=== PATIENT | female | born 1985 | race Caucasian/White ===

== ENCOUNTER 2022-08-15 00:36 | Day surgery (SDC) | payer BC, SELFPAY ==
[2022-08-02 14:41] VITALS: BMI 25.1
--- NOTE | 2022-08-02 14:42 | PC.NURSE ---
Report to the Outpatient Waiting Room, entrance under the green pavilion located off [facility], at time _0700_ on date _08/15/22__. Planned Procedure Time: _0900__. Time changes happen often and if your time is changed the preop area will call you the afternoon before. - You and your visitor will be asked to self-screen and do not enter if you have any COVID symptoms. - Only one visitor is requested with a max of two and NO children visitors are allowed at this time. - The patient visitor may be requested to leave or wait in car when not with patient due to distancing restrictions. - A mask is optional within the hospital. Patients may have clear liquids (water, carbonated beverages, clear teas, apple juice) until 3 hours prior to surgery with a maximum of 20 ounces. - No food from midnight until time of surgery - Infants may have breast milk until 4 hours before surgery, infant formula 6 hours prior to surgery. - Children will be allowed to drink immediately following surgery. If applicable, please bring a bottle or sippy cup to assist with drinking. Juice, water, soda, and popsicles are readily available. For infants on formula, please bring formula the day of surgery. Pacifiers are allowed. Take the following medications with a SIP of water the morning of surgery: __if needed zyrtec Medications to discontinue per physician supplement 3 days prior to surgery____ Date to take last dose Please no make-up, nail turkish, hairspray, perfume, deodorant, or body powder the day of surgery. No jewelry (including any body piercings) or valuables the day of surgery, leave them at home. Please take a shower or bath the night before, or the morning of, surgery with an antibacterial soap. Wear comfortable, loose fitting clothing. Children are encouraged to wear pajamas. - Jewelry must be removed prior to entering the operating room. Rings and piercings that are not removed may be cut off. - The hospital will not accept responsibility for valuables. - Please leave all valuables, including medications, at home the day of surgery. If you are going home after surgery, a licensed cdl truck driver must drive you home. - NO public transportation without another adult if you receive anesthesia. - We recommend that an adult stay with you for 24 hours following discharge. - We also recommend that you do not drive, make important decision, drink alcoholic beverages, or take any drugs that were not prescribed by your health care provider for at least 24 hours after your discharge time. For Pediatric surgeries, we recommend two adults accompany the child home. Follow any additional instructions given to you from your surgeon. If you or anyone in your household have experienced Covid symptoms in the past week, please notify your surgeon or the nurse liaison at the phone number below for possible testing. Telephone instructions given to _patient__and asked if any additional questions and then verbalized understanding. Patient advised to call surgeon office or pre surgery nurse liaison [phone] if any additional questions.
--- NOTE | 2022-08-14 14:36 | P.PNAN_ITS ---
Anes - Initial Pre Proc Eval Procedure: Operation Date: 08/15/22 07:30 Proposed Procedures p Diagnostic Laparoscopic Bilateral Salpingectomy, - Vee Tavares DO s Hysteroscopy with Dilation and Curettage, Endometrial Novasure Ablation, - Vee Tavares DO Date/Time: 08/14/22 14:36 Surgeon: Vee Tavares DO Pre Op Diagnosis: Heavy Menstrual Bleeding, Desire Sterilization Patient Data Age: 37 Gender: F Height: 1.75 m Weight: 77.11 kg Allergies Allergy/AdvReac Type Severity Reaction Status Date / Time No Known Allergies Allergy Verified 08/02/22 14:32 Home Medications Medication Instructions Recorded Confirmed Type ascorbic acid (vitamin C) 1 tablet PO DAILY 08/02/22 08/02/22 History calcium carb-vit D3-minerals 600 1 tablet PO DAILY 08/02/22 08/02/22 History mg calcium-400 unit tablet cetirizine 10 mg capsule (Zyrtec) 10 mg PO TID PRN Rash 08/02/22 08/02/22 History vitamin B complex (B 1 tablet PO DAILY 08/02/22 08/02/22 History Complex-Vitamin B12 tablet) Patient hx anesthesia problems: post op nausea/vomiting (has motion sickness) Family hx anesthesia problems: none Results Review: All pre-operative results and documents have been reviewed as part of the pre- operative evaluation. [facility] Social History Social History Smoking status: Former smoker Tobacco type: cigarettes Smoking end date: 08/08/22 Additional smoking assessment comments: Pt stated she smoked socially for a few years. on and off Alcohol intake: current Drinks per week: 4 Substance use: never Substance use type: does not use Living arrangements: with family Spiritual care concerns: No Anes - Eval Final PreProcedure Day of Procedure 08/14/22 14:36 Patient weight: normal Heart: regular rate and rhythm Lungs: clear to auscultation Airway: Mallampati scale class II Neurological: alert and oriented Last oral intake: >/= 8 hours ASA classification: I Emergent: no Anesthetic plan: proceed Anesthesia type and monitoring: general ETT and standard monitoring Results Review: All pre-operative results and documents have been reviewed as part of the pre- operative evaluation. Informed Consent: The patient's anesthetic plan and its attendant risks and benefits were discussed with the patient/family/POA. Questions were solicited and answers provided to the satisfaction of the patient/family/POA.
[2022-08-15] VITALS (8 sets, daily range): BP systolic 94–103; BP diastolic 55–66; PULSE 53–73; RESP 12–18; TEMP 36.2–37.1; O2SAT 100
[2022-08-15] MEDS: ACETAMINOPHEN 500 MG TABLET 1000 MG PO (06:44)
[2022-08-15] MEDS: LACTATED RINGERS 1,000 ML 30 ML IV CONT ×2 (06:45→08:25)
[2022-08-15] MEDS: GABAPENTIN 300 MG CAPSULE PO (06:45)
[2022-08-15] MEDS: SCOPOLAMINE 1.5 MG PATCH TRANSDERM (07:00)
--- NOTE | 2022-08-15 07:14 | WPDHPUPDATE1 ---
History and Physical Update Update Date/Time: 08/15/22 07:14 History and Physical has been reviewed, including an updated exam of the patient. There are NO changes in the patient's condition. Risks, benefits, and alternatives have been discussed and questions answered. Patient agrees to proceed with procedure.
--- NOTE | 2022-08-15 07:14 | PM.IMHP ---
H&P: HPI History of Present Illness Date/Time: 08/15/22 07:14 Chief Complaint: I'm here for my surgery Narrative: Sandhya presents with undesired fertility and a desired to control her heavy periods. She has used and failed other medical management for this. Review of Systems Review of Systems: All systems reviewed & are unremarkable except as noted in HPI and below PMFSH Social History Social History Smoking status: Former smoker Tobacco type: cigarettes Smoking end date: 08/08/22 Additional smoking assessment comments: Pt stated she smoked socially for a few years. on and off Alcohol intake: current Drinks per week: 4 Substance use: never Substance use type: does not use Living arrangements: with family Spiritual care concerns: No Meds Home Medications and Allergies Home Medications Medication Instructions Recorded Confirmed Type ascorbic acid (vitamin C) 1 tablet PO DAILY 08/02/22 08/15/22 History calcium carb-vit D3-minerals 600 1 tablet PO DAILY 08/02/22 08/15/22 History mg calcium-400 unit tablet cetirizine 10 mg capsule (Zyrtec) 10 mg PO TID PRN Rash 08/02/22 08/15/22 History vitamin B complex (B 1 tablet PO DAILY 08/02/22 08/15/22 History Complex-Vitamin B12 tablet) Allergies Allergy/AdvReac Type Severity Reaction Status Date / Time No Known Allergies Allergy Verified 08/15/22 07:13 Exam Const: General: comfortable and no acute distress Eyes: General: appearance normal, both eyes and all related structures Neck: Neck: supple and no JVD Resp: Effort & Inspection: normal respiratory effort Cardio: Rate: regular rate Rhythm: regular rhythm GI: GI Palp: Yes Soft to palpation Auscultation: normal bowel sounds Skin: General skin exam: normal color and no rashes or lesions noted Neuro: General: gait normal Speech: normal speech Motor exam (neuro): 5/5 motor strength present throughout Psych: Mental Status: mental status grossly normal Assessment and Plan Assessment and plan (1) Sterilization: Code(s): Z30.2 - Encounter for sterilization Status: Acute (2) Heavy menstrual bleeding: Code(s): N92.0 - Excessive and frequent menstruation with regular cycle Status: Acute Plan Diagnostic laparoscopy, bilateral salpingectomy. Hysteroscopy, D&C, Novasure ablation
[2022-08-15] MEDS: BUPIVACAINE/EPINEPHRINE 0.5% 30 ML VIAL 10 ML INFILTRATE (07:57)
[2022-08-15] MEDS: KETOROLAC 30 MG/ML VIAL (*BKC) IV PUSH (08:17)
--- NOTE | 2022-08-15 08:24 | W.PM.PROC2 ---
Procedure Note - Detailed Date of Procedure 08/15/22 Pre-op Diagnosis Heavy Menstrual Bleeding, Desires Sterilization Post-op Diagnosis Same Procedure Performed Diagnostic laparoscopy, bilateral salpingectomy, hysteroscopy, D&C, Novasure ablation Surgeon Vee Tavares, DO Anesthesia General Indications Undesired fertility desiring sterilization, heavy menstrual bleeding Findings Normal-appearing vulva and vaginal canal, large cervix. Medium size midplane uterus. Internally, the liver, gallbladder and stomach appeared unremarkable. The bowels were unremarkable except for some filmy adhesions from the cecum to the right pelvic sidewall. The pelvic organs including the uterus tubes and ovaries were unremarkable. Description of Procedure Patient was taken to the operating room where she was placed under general anesthesia. She was prepped and draped in the normal sterile fashion in a dorsal lithotomy position. No preoperative antibiotics were indicated. A time-out was performed a speculum was placed in the vagina. A sponge stick was placed in the speculum was removed. Gloves were changed and attention was then turned to the abdomen. The skin above the umbilicus was grasped with 2 penetrating towel clamps and injected with local. A small incision was made and a Veress needle was introduced. The saline water drop test was performed to confirm intraperitoneal placement and CO2 insufflation was started. The abdomen was brought to a filling pressure of 15 mmHg. The Veress needle was removed and a 5 mm Optiview trocar was used to gain access to the abdominal cavity. Survey of the abdomen revealed no evidence of bowel or vascular injury upon entry. Patient was then placed in steep Trendelenburg position. Additional port sites in the right and left lower quadrants were identified, injected and incised. Additional 5 mm trocars were placed under direct visualization. Survey of the pelvis revealed the above-mentioned findings. The physiological adhesions on the sigmoid colon were taken down in order to better visualize the left tube. The filmy adhesions on the cecum were also taken down. The right tube was then elevated and was cauterized and transected off using LigaSure. The specimen was passed off through the bilingual administrative assistant port. The dissection was completed in identical fashion on the left-hand side and the specimen was handed off. All pedicles were reinspected and found to be hemostatic. The instruments were removed and the CO2 gas was allowed to escape. The trocars were removed. The incisions were closed with subcuticular 4-0 Monocryl and covered with skin glue. Attention was then turned to the hysteroscopy portion. Sponge stick was removed and the cervix was visualized with a speculum. A paracervical block using Marcaine containing epinephrine was performed. Anterior lip of the cervix was grasped with a long Allis clamp. The cervix was then sequentially dilated up to accommodate the hysteroscope. Uterus sounded to 8.5 cm. The uterine cavity was 5 cm. Survey of the endometrium revealed no evidence of lesions or abnormal contour. The scope was then removed and a thorough curettage of the entire cavity was performed. The specimen was handed off for pathology. The NovaSure was introduced and passed the cavity integrity test. The device was activated on 112 w for 1 minutes and 15 seconds. The device was then retracted into its sleeve and was removed. All fluid was wiped clean of the vaginal canal and the tenaculum and the Allis clamp were removed. The patient was taken to the recovery room in stable condition. All instrument and sponge counts were correct at the conclusion of the procedure. Estimated Blood Loss 5 IV Fluids 1,000 Packing No Pathology Yes Complications No immediate complications Condition Stable Disposition PACU
[2022-08-15] MEDS: fentaNYL CITRATE INJ (*CRX) 100 MCG/2 ML VIAL 25 MCG IV PUSH ×4 (08:45→09:15)
[2022-08-15] MEDS: ONDANSETRON INJ 4 MG/2 ML VIAL IV PUSH (09:22)
== END 2022-08-15 10:30 | disposition home or self-care (01) ==
PROVIDERS: Visit Provider Obstetrics & Gynecology Gynecologic Oncology
PROC: (CPT 49320; principal; 2022-08-15 07:30)
PROC: 0U5B8ZZ Destruction of Endometrium, Via Natural or Artificial Opening Endoscopic (ICD-10-PCS; CPT 58563; 2022-08-15 07:30)
DX: N92.0 Excessive and frequent menstruation with regular cycle (principal); Z30.2 Encounter for sterilization; N84.0 Polyp of corpus uteri
CPT/HCPCS: 58661; 58563; 88302; 88305; A9270; J0330; J1885; J2250; J2405; J2710; J3010; J7030; J7120